=== PATIENT | female | born 2000 | race Two or more races ===

== ENCOUNTER 2025-04-14 21:19 | Outpatient (CLI) | payer OTHER ==
[~2025-04-14] VITALS: Ht 165.1 cm; Wt 65.8 kg
[2025-04-14 20:23] VITALS: BP 109/72
[2025-04-14] MEDS ORDERED: PRENATAL CAPLE1 EAC1 PO (21:24)
[2025-04-14] MEDS ORDERED: RINGERS SOLUTION,LACTATED 1,000 ML IV SCH (21:30)
[2025-04-14 21:40] LABS: BASO % 0.2 % (0.1-1.2); EOS # 0.28 (0.04-0.54); EOS % 2.3 % (0.7-7.0); LYMPH # 2.31 (1.18-3.74); LYMPH % 18.9 % (19.3-53.1); MEAN PLATELET VOLUME 9.90 fl (9.4-12.4); MONO # 0.80 (0.24-0.82); MONO % 6.6 % (4.7-12.5); NEUT # 8.73 (1.56-6.13); NEUT % 71.6 % (34.0-71.1); RED CELL DISTRIBUTION WIDTH 12.1 % (11.6-14.4)
[2025-04-14 21:41] LABS: URINE APPEARANCE Clear; URINE BILIRRUBIN Negative (NEGATIVE); URINE BLOOD Negative; URINE COLOR Yellow; URINE GLUCOSE Negative (NEGATIVE); URINE LEUKOCYTE Trace; URINE NITRATE Negative; URINE PROTEIN Negative (NEGATIVE); URINE UROBILINOGEN 0.2 E.U./dl
[2025-04-14 21:43] LABS: URINE BACTERIA 632.2 uL (0.0-1933); URINE EPITHELIAL CELLS 7.5 uL (0.0-38.8); URINE WBC 17.6 uL (0.0-23.2)
[2025-04-14 21:46] LABS: URINE CAST 0.14 uL (0.0-1.40); URINE KETONE 40 (NEGATIVE); URINE RBC 0.5 uL (0.0-20.8)
[2025-04-14] MEDS ORDERED: TERBUTALINE SULFATE 1 MG/ML AMPUL ONE (22:19)
[2025-04-14] MEDS ORDERED: TERBUTALINE SULFATE 1 MG/ML AMPUL SUBCUTANEO ONE (22:30)
[2025-04-14 23:05] VITALS: BP 107/64
[2025-04-15 04:00] VITALS: BP 123/78
[2025-04-15 07:04] VITALS: BP 101/64
[2025-04-15 10:49] VITALS: BP 100/61
[2025-04-15 14:13] VITALS: BP 100/63
== END 2025-04-15 15:18 | disposition home or self-care (01) ==
LOC: OBS/DEL 21:19
PROVIDERS: ATTEND Obstetrics & Gynecology
DX: O26.893 Other specified pregnancy related conditions, third trimester (principal); R10.2 Pelvic and perineal pain; Z3A.30 30 weeks gestation of pregnancy

== ENCOUNTER 2025-05-14 13:07 | Inpatient (IN) | payer OTHER ==
[~2025-05-14] VITALS: Ht 165.1 cm; Wt 67.6 kg
[~2025-05-14 13:07] MED LIST: PRENATAL CAPLE1 EAC1 PO
[2025-05-14 13:30] VITALS: BP 102/67
[2025-05-14] MEDS ORDERED: BETAMETHASONE ACETATE,SOD PHOS 30 MG/5 ML ML IM ONE (13:30)
[2025-05-14] MEDS ORDERED: RINGERS SOLUTION,LACTATED 1,000 ML IV SCH (13:30)
[2025-05-14 14:57] LABS: BASO % 0.3 % (0.1-1.2); EOS # 0.26 (0.04-0.54); EOS % 2.3 % (0.7-7.0); LYMPH # 1.54 (1.18-3.74); LYMPH % 13.6 % (19.3-53.1); MEAN PLATELET VOLUME 10.00 fl (9.4-12.4); MONO # 0.61 (0.24-0.82); MONO % 5.4 % (4.7-12.5); NEUT # 8.84 (1.56-6.13); NEUT % 77.9 % (34.0-71.1); RED CELL DISTRIBUTION WIDTH 12.9 % (11.6-14.4)
[2025-05-14 14:58] LABS: URINE APPEARANCE Cloudy; URINE BILIRRUBIN Negative (NEGATIVE); URINE BLOOD Negative; URINE COLOR Yellow; URINE GLUCOSE Negative (NEGATIVE); URINE KETONE Negative (NEGATIVE); URINE LEUKOCYTE Small; URINE NITRATE Negative; URINE PROTEIN Negative (NEGATIVE); URINE UROBILINOGEN 1.0 E.U./dl
[2025-05-14 15:00] LABS: URINE BACTERIA 2675.8 uL (0.0-1933); URINE EPITHELIAL CELLS 21.8 uL (0.0-38.8); URINE RBC 3.8 uL (0.0-20.8); URINE WBC 9.8 uL (0.0-23.2)
[2025-05-14 15:13] LABS: URINE CAST 0.29 uL (0.0-1.40)
[2025-05-14 15:15] LABS: INR < 0.93
[2025-05-14 16:30] VITALS: BP 110/69
[2025-05-14 19:39] VITALS: BP 112/60
[2025-05-14 23:18] VITALS: BP 95/60
[2025-05-15] VITALS (7 sets, daily range): BP systolic 90–102; BP diastolic 55–67; O2SAT 98
[2025-05-15] MEDS ORDERED: BETAMETHASONE ACETATE,SOD PHOS 30 MG/5 ML ML IM NR (14:15)
[2025-05-16 04:00] VITALS: BP 96/50
[2025-05-16 06:16] VITALS: BP 104/63; O2SAT 98
[2025-05-16 11:14] VITALS: BP 96/60
[2025-05-16 15:22] VITALS: BP 90/57
[2025-05-16 19:20] VITALS: BP 105/69
[2025-05-17] VITALS: BP 100/60
[2025-05-17 08:15] VITALS: BP 93/63
== END 2025-05-17 11:55 | disposition home or self-care (01) | DRG 833 ==
LOC: OBS/DEL 13:07 → LDR 05-15 18:14 → OB/GYN 05-16 14:28
PROVIDERS: ADMIT Obstetrics & Gynecology; ATTEND Obstetrics & Gynecology
PROC: BY4FZZZ Ultrasonography of Third Trimester, Single Fetus (ICD-10-PCS; 2025-05-14)
PROC: 4A1HXCZ Monitoring of Products of Conception, Cardiac Rate, External Approach (ICD-10-PCS; principal; 2025-05-15)
DX: O36.8130 Decreased fetal movements, third trimester, not applicable or unspecified (principal); O26.843 Uterine size-date discrepancy, third trimester; O36.8310 Maternal care for abnormalities of the fetal heart rate or rhythm, first trimester, not applicable or unspecified; O32.1XX0 Maternal care for breech presentation, not applicable or unspecified; Z3A.34 34 weeks gestation of pregnancy

== ENCOUNTER → 2025-05-30 08:45 | Outpatient (CLI) | payer OTHER | END | disposition home or self-care (01) | LOC: PRENATAL 08:45 | PROVIDERS: ATTEND Obstetrics & Gynecology Maternal & Fetal Medicine | DX: O26.849 Uterine size-date discrepancy, unspecified trimester (principal); O36.8130 Decreased fetal movements, third trimester, not applicable or unspecified; O32.9XX0 Maternal care for malpresentation of fetus, unspecified, not applicable or unspecified; Z3A.36 36 weeks gestation of pregnancy ==

== ENCOUNTER 2025-06-13 17:43 | Inpatient (IN) | payer OTHER ==
[~2025-06-13] VITALS: Ht 165.1 cm; Wt 3.2 kg
[2025-06-13 17:05] VITALS: BP 106/72
[2025-06-13] MEDS ORDERED: RINGERS SOLUTION,LACTATED 1,000 ML IV SCH ×2 (18:00→20:30)
[2025-06-13] MEDS ORDERED: PRENATABS RX T1 EACH PO (18:00)
[2025-06-13 18:41] LABS: BASO % 0.2 % (0.1-1.2); EOS # 0.14 (0.04-0.54); EOS % 1.1 % (0.7-7.0); LYMPH # 2.06 (1.18-3.74); LYMPH % 16.3 % (19.3-53.1); MEAN PLATELET VOLUME 10.40 fl (9.4-12.4); MONO # 0.71 (0.24-0.82); MONO % 5.6 % (4.7-12.5); NEUT # 9.65 (1.56-6.13); NEUT % 76.2 % (34.0-71.1); RED CELL DISTRIBUTION WIDTH 12.9 % (11.6-14.4)
[2025-06-13 18:45] LABS: URINE APPEARANCE Clear; URINE BILIRRUBIN Negative (NEGATIVE); URINE BLOOD Negative; URINE COLOR Yellow; URINE GLUCOSE Negative (NEGATIVE); URINE KETONE Negative (NEGATIVE); URINE LEUKOCYTE Negative; URINE NITRATE Negative; URINE PROTEIN Negative (NEGATIVE); URINE UROBILINOGEN 0.2 E.U./dl
[2025-06-13 18:48] LABS: URINE EPITHELIAL CELLS 13.5 uL (0.0-38.8); URINE RBC 3.8 uL (0.0-20.8); URINE WBC 20.6 uL (0.0-23.2)
[2025-06-13 18:53] LABS: URINE CAST 0.14 uL (0.0-1.40)
[2025-06-13 19:14] LABS: INR < 0.93
[2025-06-13 19:21] LABS: ALT/SGPT 18.0 U/L (12-78); AST/SGOT 22.0 U/L (15-37); BILIRUBIN TOTAL 0.28 mg/dL (0.3-1.2); BUN CREA RATIO 17.0 (7.0-25.0); CREATININE SERUM 0.46 mg/dL (0.55-1.02); GFR 164.2; GLOBULINA 3.6 G/DL (2.4-3.5); GLUCOSE FASTING 84.0 mg/dL (65-100); OSMOLALITY SERUM 279.0 MOSM/KG (275-295)
[2025-06-13] MEDS ORDERED: OXYTOCIN 1,000 ML IV SCH (20:30)
[2025-06-13] MEDS ORDERED: MORPHINE SULFATE 4 MG/ML CARTRIDGE IV PRN (20:30)
[2025-06-13] MEDS ORDERED: CHLORHEXIDINE GLUCONATE 120 ML BOTTLE TOP ONE (20:30)
[2025-06-13] MEDS ORDERED: OXYTOCIN 10 UNITS/ML VIAL IV ONE (21:45)
[2025-06-13 21:55] LABS: BASO % 0.1 % (0.1-1.2); EOS # 0.10 (0.04-0.54); EOS % 0.6 % (0.7-7.0); LYMPH # 1.51 (1.18-3.74); LYMPH % 9.5 % (19.3-53.1); MEAN PLATELET VOLUME 9.90 fl (9.4-12.4); MONO # 0.75 (0.24-0.82); MONO % 4.7 % (4.7-12.5); NEUT # 13.46 (1.56-6.13); NEUT % 84.7 % (34.0-71.1); RED CELL DISTRIBUTION WIDTH 12.7 % (11.6-14.4)
[2025-06-13] MEDS ORDERED: CEFAZOLIN SODIUM 1,000 MG VIAL IV ONE (22:00)
[2025-06-13] MEDS ORDERED: ERYTHROMYCIN BASE OPHT 1GM EACH TUBE OP ONE (22:00)
[2025-06-14 01:35] VITALS: BP 111/71
[2025-06-14 08:00] VITALS: BP 112/77
[2025-06-14] MEDS ORDERED: OxyCODONE HCL 5 MG TABLET (ROXICODONE) PO PRN (09:00)
[2025-06-14] MEDS ORDERED: ACETAMINOPHEN 325 MG TABLET PO PRN (09:00)
[2025-06-14 15:53] VITALS: BP 98/62
[2025-06-15 00:13] VITALS: BP 118/70
[2025-06-15 10:31] VITALS: BP 115/74
[2025-06-15 16:00] VITALS: BP 103/65
[2025-06-16 00:01] VITALS: BP 110/71; BP 117/79
[2025-06-16] MEDS ORDERED: ACETAMINOPHEN500 M2 PO (08:27)
[2025-06-16] MEDS ORDERED: COLACE100 MG PO (08:27)
[2025-06-16] MEDS ORDERED: SIMETHICONE125 M1 PO (08:27)
[2025-06-16 10:01] VITALS: BP 100/68
== END 2025-06-16 10:13 | disposition home or self-care (01) | DRG 788 ==
LOC: OB/GYN → LDR 17:43 → OB/GYN 17:43
PROVIDERS: ADMIT Obstetrics & Gynecology; ATTEND Obstetrics & Gynecology
PROC: 4A1HXCZ Monitoring of Products of Conception, Cardiac Rate, External Approach (ICD-10-PCS; 2025-06-13)
PROC: 10D00Z1 Extraction of Products of Conception, Low, Open Approach (ICD-10-PCS; principal; 2025-06-13 20:00)
DX: O32.1XX0 Maternal care for breech presentation, not applicable or unspecified (principal); Z3A.38 38 weeks gestation of pregnancy; Z37.0 Single live birth